=== PATIENT | female | born 1990 | race Caucasian/White ===

== ENCOUNTER 2024-09-02 08:09 | Emergency (ER) | payer OTHER, SELFPAY ==
[2024-09-02 08:31] VITALS: BP 108/65; PULSE 116; RESP 16; TEMP 37.2; O2SAT 96; BMI 26.2
--- NOTE | 2024-09-02 08:32 | EKG_ITS ---
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
--- NOTE | 2024-09-02 08:34 | EDRME_ITS ---
Rapid Medical Screening Exam [facility] Arrival date/time: 09/02/24 08:09 33-year-old female with no known medical history presents to the emergency room with a chief complaint of generalized weakness and intermittent headache x 2 days. Patient states last night she was nursing her baby and after breast- feeding began to have dizziness and lightheadedness to the point where she fell and hit her head. Patient denies any LOC. Today the patient denies any dizziness, lightheadedness or any visual disturbances. I have greeted and performed a focused initial assessment of this patient. A comprehensive ED assessment and evaluation of the patient, analysis of all test results, and completion of the medical decision making process will be conducted by additional ED providers. Chief Complaint: Fall Vital signs: Vital Signs Temperature 99.0 F 09/02/24 08:31 Pulse Rate 116 H 09/02/24 08:31 Respiratory Rate 16 09/02/24 08:31 Blood Pressure 108/65 09/02/24 08:31 Pulse Oximetry (%) 96 09/02/24 08:31 Oxygen Delivery Method Room Air 09/02/24 08:31 Vital signs reviewed by provider: Yes
--- NOTE | 2024-09-02 08:36 | XR_ITS ---
Examination: CT brain head without contrast. 2-D sagittal coronal reconstructions Date and time of exam:September 02, 2024 0850 hours INDICATIONS: Patient fell last night with injury to the head followed by head pain dizziness CTDI: vol (mGy):47.7 DLP: (mGycm):900 Technique: Multiple CT axial sections of the brain have been obtained, 5 mm slice thickness. Contrast has not been administered. 2-D sagittal, coronal reconstructions have been obtained Low dose protocols were performed. One or more of the following dose reduction techniques were used; automated exposure control, adjustment of the mA and/or KV according to patient size, use of iterative reconstruction technique. Findings: No significant ventricular enlargement. Intra-axial or extra-axial hemorrhage density is not seen. No mass effect or midline shift Basal cisterns are not remarkable. Fourth ventricle is midline. Cranial vault intact. Impression: Negative for acute hemorrhage, mass effect or midline shift
[2024-09-02 10:08] LABS: Basophils % (Auto) 1 % (0-2.5); Eosinophils % (Auto) 0 % (0-10); Hematocrit 44.9 % (36.0-46.0); Hemoglobin 15.5 g/dL (12.0-16.0); Immature Granulocytes % (Auto) 0 % (0-0); Immature Granulocytes Auto 0.02 Thou/mm3 (0.00-0.00); Lymphocytes # (Auto) 1.5 Thou/mm3 (1.0-4.8); Lymphocytes % (Auto) 28 % (10-50); Mean Corpuscular HGB Conc 34.5 g/dl (31.0-37.0); Mean Corpuscular Hemoglobin 28.3 pg (25.0-35.0); Mean Corpuscular Volume 82 fL (80-100); Monocytes # (Auto) 0.8 Thou/mm3 (0.0-0.8); Monocytes % (Auto) 15 % (0-12); Neutrophils # (Auto) 2.9 Thou/mm3 (1.8-7.7); Neutrophils % (Auto) 56 % (37-80); Nucleated Red Blood Cell % 0 /100 WBC (0); Platelet Count 220 Thou/mm3 (140-440); RDW Standard Deviation 38.2 fL (36.4-46.3); Red Blood Count 5.47 Miln/mm3 (4.00-5.20); White Blood Count 5.2 Thou/mm3 (3.6-11.0)
[2024-09-02 10:26] LABS: B-Type Natriuretic Peptide < 20 pg/mL (0-100)
[2024-09-02 10:30] LABS: Alanine Aminotransferase 15 U/L (10-49); Albumin/Globulin Ratio 1.6 (1.2-2.2); Alkaline Phosphatase 95 U/L (46-116); Anion Gap 7 (7-16); Aspartate Amino Transferase 16 U/L (0-34); BUN/Creatinine Ratio 12 Ratio (12-20); Bilirubin,Total 0.6 mg/dL (0.3-1.2); Blood Urea Nitrogen 11 mg/dL (9-23); Calcium 9.2 mg/dL (8.3-10.6); Calcium (Corrected) 9.2 mg/dL (8.5-10.1); Carbon Dioxide 26.9 mMol/L (20.0-31.0); Chloride 102 mMol/L (98-107); Creatinine (Component) 0.9 mg/dL (0.6-1.3); Estimated Creatinine Clearance 90.4 mL/min (>60); Globulin 3.2 gm/dL (2.3-3.5); Glucose 101 mg/dL (74-106); Osmolality,Calculated 271 (275-295); Potassium 4.1 mMol/L (3.4-5.1); Sodium 136 mMol/L (136-145); Total Protein 8.2 gm/dL (5.7-8.2); Troponin I < 0.002 ng/mL (0.0-0.045); eGFR > 60 See Note
--- NOTE | 2024-09-02 12:32 | PD.EDFALL ---
ED Fall Injury RME/HPI General Chief Complaint: Fall Stated Complaint: Fall hit head last night Time Seen by Provider: 09/02/24 12:24 Arrival date/time: 09/02/24 08:09 RME / HPI RME / HPI Narrative: 33-year-old female with no known medical history presents to the emergency room with a chief complaint of generalized weakness and intermittent headache x 2 days. Also complained of bodyaches and sore throat.. Patient states last night she was nursing her baby and after breast-feeding began to have dizziness and lightheadedness to the point where she fell and hit her head. Patient denies any LOC. Today the patient denies any dizziness, lightheadedness or any visual disturbances. Related Data Previous Rx's ?Medication ?Instructions ?Recorded ibuprofen 800 mg tablet 800 mg PO Q8H PRN pain #30 tabs 09/02/24 nirmatrelvir 300 mg (150 mg See Rx Instructions PO .COMPLEX 09/02/24 x2)-ritonavir 100 mg tablet,dose #30 tabs pack (Paxlovid) Allergies Allergy/AdvReac Type Severity Reaction Status Date / Time No Known Allergies Allergy Verified 09/02/24 08:14 Review of Systems Review of Systems Narrative Review of Systems: Review of system reviewed and within normal limits except mentioned in HPI ED Exam Narrative Physical exam: VITAL SIGNS: Reviewed. GENERAL APPEARANCE: Alert and interactive, follows commands, no acute distress, HEAD AND FACE: Non-traumatic. ENT: PERRL, pink conjunctivitis, eyelid no trauma, Mucous membrane moist. NECK: Supple, nontender, no nuchal rigidity. CHEST: No tenderness, no crepitus, no paradoxical movement, no retractions. LUNGS: Clear, well ventilated, symmetric, no rales, no wheezing, no ronchi, no stridor, good breath sounds bilaterally. HEART: Regular rate, regular rhythm, no murmur, no gallops. ABDOMEN: Soft, positive bowel sounds, nondistended, no guarding, nontender, no rebound, no masses, RECTAL: Deferred. GENITAL: Deferred. NEUROLOGICAL: Gross motor function intact sensory function intact, Appropriate for age. MUSCULOSKELETAL: low back nontender, full range of motion. EXTREMITIES: Nontender, full range of motion. SKIN: Color pink, dry, no rash, no lacerations, no abrasions, no contusions. LYMPHATICS: Deferred. Course Quality Measures none Orders Category Date Time Status Bedside COVID-19 Antigen Test NOW Care 09/02/24 08:33 Active Bedside Influenza A&B Antigen Test NOW Care 09/02/24 08:33 Completed EKG (ED ONLY) *Do not use* NOW Care 09/02/24 08:[address] head/brain wo con Stat Exams 09/02/24 08:36 Completed EKG (ED Only) Stat Exams 09/02/24 08:32 Draft B-Type Natriuretic Peptide Stat Lab 09/02/24 09:42 Completed CBC Stat Lab 09/02/24 09:42 Completed Comprehensive Metabolic Panel Stat Lab 09/02/24 09:42 Completed Magnesium Stat Lab 09/02/24 09:42 Completed Troponin I Stat Lab 09/02/24 09:42 Completed Vital Signs Vital signs: Vital Signs Temperature 99.0 F 09/02/24 08:31 Pulse Rate 116 H 09/02/24 08:31 Respiratory Rate 16 09/02/24 08:31 Blood Pressure 108/65 09/02/24 08:31 Pulse Oximetry (%) 96 09/02/24 08:31 Oxygen Delivery Method Room Air 09/02/24 08:31 Fall [facility] Narrative [facility] Narrative:: 33-year-old female with no known medical history presents to the emergency room with a chief complaint of generalized weakness and intermittent headache x 2 days. Also complained of bodyaches and sore throat.. Patient states last night she was nursing her baby and after breast-feeding began to have dizziness and lightheadedness to the point where she fell and hit her head. Patient denies any LOC. Today the patient denies any dizziness, lightheadedness or any visual disturbances. Patient's workup today all came back unremarkable except positive for COVID-19. CT scan of the head came back normal. Results discussed with the patient. Patient data External records reviewed:: None Clinical information provided by:: none Social determinants that could affect healthcare access:: none Patient has the following chronic illnesses:: None How is presenting disease/condition affected by chronic disease/condition?: no chronic disease Evaluation data The following diagnostics were reviewed and interpreted by me:: lab results and radiology exam(s) Lab and/or radiology exams considered but not ordered:: None Interpretation Summary: See results in MDM Medications / Prescriptions Medications or Prescriptions considered but not ordered:: None Medication administrations:: None Consultations Consultation(s) initiated? (list below): No Diagnosis Fall Differential Diagnosis: syncope and other (Fall, COVID-19) Most likely diagnosis given after review of the tests above:: Fall, COVID-19 Admission Indicated Admission indicated?: not indicated Admission Request Was there a request for admission?: No Disposition Plan Disposition Plan: Discharge Discharge Attestation Discharge Attestation: The patient and all family members were given an opportunity to ask questions and understood the discharge instructions. Discharge instructions specifically effects, indications for sooner follow up or return to the emergency department, and the expected course of current diagnosis. Patient condition: Stable Discharge Plan Plan Patient Disposition: HOME (Self Care) Disposition Comment: stable Prescriptions/Referrals Prescriptions/Med Rec: New Paxlovid 300 mg (150 mg x 2)-100 mg tablets,dose pack See Rx Instructions .ROUTE .COMPLEX Qty: 30 0RF Rx Instructions: take TWO 150 mg tablets of nirmatrelvir with ONE 100 mg tablet of ritonavir twice daily for 5 days ibuprofen 800 mg tablet 800 mg PO Q8H PRN (Reason: pain) Qty: 30 0RF Referrals: No Primary/Family,Physician [Primary Care Provider] - In 1 week Problem List Clinical Impression: COVID-19, Fall Patient/Caregiver Discharge Instructions Discharge Activity: activity as tolerated Education Materials: Proning COVID-19 Additional Instructions: Thank you for the opportunity for serving you today. You are stable for discharged . You are advised to: Follow-up with your PCP in 1 to 2 days Return to ED for worsening of symptoms Increase oral fluids Take medication as prescribed Quarantine yourself for 5 days Print Language: Zambian Stand Alone Forms: Alana Award Info., Patient Portal Info Letter PA/DOUBLE END SEWER Supervising Physician CLAU/ONEIDA Supervising Physician: MD Roberto
== END 2024-09-02 12:43 | disposition home or self-care (01) ==
PROVIDERS: Nurse Practitioner Family; Emergency Provider Emergency Medicine
DX: U07.1 COVID-19 (principal); S09.90XA Unspecified injury of head, initial encounter; W19.XXXA Unspecified fall, initial encounter
CPT/HCPCS: 36415; 70450; 80053; 83735; 83880; 84484; 85025; 87400; 87811; 93005; 99284